=== PATIENT | male | born 1965 | race American Indian/Alaskan Native ===

== ENCOUNTER 2020-10-19 19:53 | Inpatient (IN) | payer OTHER, SELFPAY ==
[2020-10-19] MEDS ORDERED: ACETAMINOPHEN 325 MG TAB PO ONE (23:19)
[2020-10-19] MEDS ORDERED: SODIUM CHLORIDE 0.9% 1000 ML 1,000 ML IV ONE (23:27)
[2020-10-19] MEDS ORDERED: dexAMETHasone 20 MG/5 ML VIAL IV ONE (23:27)
--- NOTE | 2020-10-19 23:42 | Emergency Department Report ---
- General Chief Complaint: Fever Stated Complaint: FEVER/CHILLS X1WK PUI?: Yes Source: patient Mode of arrival: Ambulatory Limitations: No Limitations - History of Present Illness Initial Comments: The patient was evaluated in the emergency department for symptoms described in the history of present illness. He/she was evaluated in the context of the global COVID-19 pandemic, which necessitated consideration that the patient might be at risk for infection with the virus that causes COVID-19. Institutional protocols and algorithms that pertain to the evaluation of patients at risk for COVID-19 are in a state of rapid change based on information released by regulatory bodies including the CDC and federal and state organizations. These policies and algorithms were followed during the patient's care in the emergency department. Please note that these policies, procedures and recommendations changed on a rapid basis. 55-year-old -[place] male presents to the emergency room complaining of fever chills decreased appetite loss of taste and smell x1 week. Patient reports that he tested positive for Covid yesterday. Patient comes in with a temperature of 101.2 and a pulse ox of 91% on room air. 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 He does not take any medications on a daily basis and has no known drug allergies. Patient is unvaccinated. MD Complaint: fever, cough Onset/Timin -: week(s) Consistency: constant Improves With: nothing Worsens With: activity, deep breaths Associated Symptoms: fever, chills, cough, shortness of breath Treatments Prior to Arrival: none - Related Data Allergies Allergy/AdvReac Type Severity Reaction Status Date / Time No Known Allergies Allergy Unverified 10/19/20 23:16 ED Review of Systems ROS: Stated complaint: FEVER/CHILLS X1WK Other details as noted in HPI Comment: All other systems reviewed and negative Constitutional: chills, fever Respiratory: cough, SOB with exertion ED Past Medical Hx - Past Medical History Previous Medical History?: No - Surgical History Past Surgical History?: No - Social History Smoking Status: Never Smoker Substance Use Type: None ED Physical Exam - General Limitations: No Limitations General appearance: alert - Head Head exam: Present: atraumatic, normocephalic - Eye Eye exam: Present: normal appearance - ENT ENT exam: Present: mucous membranes moist, normal external ear exam - Neck Neck exam: Present: normal inspection, full ROM - Respiratory Respiratory exam: Present: normal lung sounds bilaterally. Absent: respiratory distress, wheezes, chest wall tenderness - Cardiovascular Cardiovascular Exam: Present: regular rate - GI/Abdominal GI/Abdominal exam: Present: soft. Absent: distended, tenderness, guarding - Extremities Exam Extremities exam: Present: normal inspection, full ROM - Back Exam Back exam: Present: normal inspection, full ROM - Neurological Exam Neurological exam: Present: alert, oriented X3, normal gait - Psychiatric Psychiatric exam: Present: normal affect, normal mood - Skin Skin exam: Present: warm, dry, intact, normal color. Absent: rash ED Course Vital Signs 10/19/20 23:06 Temperature 101.2 F H Pulse Rate 83 Respiratory 20 Rate Blood Pressure 138/105 O2 Sat by Pulse 91 Oximetry - Consultations Consultation #1: 10/20/20 01:[address] Maldonado ER attending regarding admission. Consultation #2: 10/20/20 01:[address] Vega regarding admission for Covid, pneumonia and hypoxia. Discussed labs and chest x-ray. He states admit patient to [facility] ED Medical Decision Making - Lab Data Result diagrams: 10/20/20 00:27 10/20/20 00:27 - Radiology Data Radiology results: report reviewed Study Comments [address] [address] XRay Report Signed Patient: JUANI CARDONA MR#: [id number] : 1965 Acct:[id number] Age/Sex: 55 / M ADM Date: 10/19/20 Loc: ED Attending Dr: Ordering Physician: ZULY VILLARREAL III, MD Date of Service: 10/19/20 Procedure(s): XR chest routine 2V Accession Number(s): [id number] cc: ZULY VILLARREAL III, MD Fluoro Time In Minutes: CHEST 2 VIEWS INDICATION / CLINICAL INFORMATION: cough and fever. COMPARISON: None available. FINDINGS: SUPPORT DEVICES: None. HEART / MEDIASTINUM: No significant abnormality. LUNGS / PLEURA: Patchy bilateral pulmonary opacities. No pneumothorax. ADDITIONAL FINDINGS: No significant additional findings. IMPRESSION: 1. Patchy bilateral pneumonia. Atypical/viral pneumonia such as Covid should be considered. Signer Name: Luis Carlos Jean MD Signed: 10/20/2020 12:14 AM Workstation Name: [id number] Transcribed By: DT Dictated By: Brannon Jena MD Electronically Authenticated By: Brannon Jean MD Signed Date/Time: 10/20/2013 DD/ TD/TT: - Medical Decision Making 55-year-old -[place] male presents to the emergency room complaining of fever chills decreased appetite loss of taste and smell x1 week. Patient reports that he tested positive for Covid yesterday. Patient comes in with a temperature of 101.2 and a pulse ox of 91% on room air. 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 He is from [place]. He does not take any medications on a daily basis and has no known drug allergies. Patient is unvaccinated. Covid protocol has been ordered. Patient is placed in room 36 on pulse ox cardiac monitoring chest x-ray has been ordered labs have been initiated. IV has been ordered normal saline dexamethasone. Patient has been given acetaminophen in triage. Discussed patient with patient will be admitted to med/surge. Critical Care Time: Yes (35) Critical care attestation.: If time is entered above; I have spent that time in minutes in the direct care of this critically ill patient, excluding procedure time. ED Disposition Clinical Impression: Pneumonia due to 2019 novel coronavirus, Hypoxia Disposition: OP ADMIT IP TO THIS HOSP Is pt being admited?: Yes Does the pt Need Aspirin: No Condition: Stable Instructions: Bacterial Pneumonia (ED)
--- NOTE | 2020-10-20 00:19 | XRay Report ---
CHEST 2 VIEWS INDICATION / CLINICAL INFORMATION: cough and fever. COMPARISON: None available. FINDINGS: SUPPORT DEVICES: None. HEART / MEDIASTINUM: No significant abnormality. LUNGS / PLEURA: Patchy bilateral pulmonary opacities. No pneumothorax. ADDITIONAL FINDINGS: No significant additional findings. IMPRESSION: 1. Patchy bilateral pneumonia. Atypical/viral pneumonia such as Covid should be considered. Signer Name: Luis Carlos Jean MD Signed: 10/20/2020 12:14 AM Workstation Name: [email or web address]
[2020-10-20 00:46] LABS: Basophils % (Auto) 0.6 % (0.0-1.8); Hematocrit 41.3 % (35.5-45.6); Hemoglobin 13.5 gm/dl (11.8-15.2); Lymphocytes # (Auto) 1.7 K/mm3 (1.2-5.4); Lymphocytes % (Auto) 21.9 % (13.4-35.0); Mean Corpuscular HGB Conc 33 % (32-34); Mean Corpuscular Volume 83 fl (84-94); Monocytes # (Auto) 0.6 K/mm3 (0.0-0.8); Monocytes % (Auto) 7.2 % (0.0-7.3); Platelet Count 194 K/mm3 (140-440); Red Blood Count 4.97 M/mm3 (3.65-5.03); Red Cell Distribution Width 12.9 % (13.2-15.2)
[2020-10-20 01:09] LABS: Albumin 3.6 g/dL (3.9-5); Calcium 8.2 mg/dL (8.4-10.2)
[2020-10-20] MEDS ORDERED: ACETAMINOPHEN 325 MG TAB PO PRN (02:36)
[2020-10-20] MEDS ORDERED: MORPHINE 4 MG/1 ML INJ IV PRN (02:36)
[2020-10-20] MEDS ORDERED: MAGNESIUM HYDROXIDE (MOM) ORAL LIQD UDC PO PRN (02:36)
[2020-10-20] MEDS ORDERED: ONDANSETRON 4 MG/2 ML INJ IV PRN (02:36)
[2020-10-20] MEDS ORDERED: MORPHINE 2 MG/1 ML INJ IV PRN (02:36)
[2020-10-20 02:41] LABS: C-Reactive Protein 9.6 mg/dL (0.00-1.30)
[2020-10-20] MEDS ORDERED: SODIUM CHLORIDE 0.9% 1000 ML 1,000 ML IV SCH ×2 (02:45)
--- NOTE | 2020-10-20 02:45 | History and Physical Report ---
History of Present Illness Date of examination: 10/20/20 Date of admission: 10/20/2020 Chief complaint: Shortness of breath History of present illness: 55-year-old -French male seen in the emergency room today complaining of fever and chills, decreased appetite and loss of taste and smell over the past 1 week. He states he was diagnosed with COVID-19 yesterday. 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 Upon arrival in the emergency room he had a fever of about 1 to 1.2 F and oxygen saturation of 91% on room air. Denies any chest pain, no headache or dizziness, no nausea vomiting, no diarrhea, no abdominal pain, no hematuria or dysuria. Work-up in the emergency room today, chest x-ray reveals patchy bilateral pneumonia. Patient admitted with COVID-19 pneumonia with hypoxia. Past History Past Medical History: No medical history Past Surgical History: No surgical history Social history: no significant social history Family history: no significant family history Medications and Allergies Allergies Allergy/AdvReac Type Severity Reaction Status Date / Time No Known Allergies Allergy Unverified 10/19/20 23:16 Active Meds: Active Medications Acetaminophen (Acetaminophen 325 Mg Tab) 650 mg PO Q4H PRN PRN Reason: Pain MILD(1-3)/Fever >100.5/ABDALLA Sodium Chloride (Nacl 0.9% 1000 Ml) 1,000 mls @ 75 mls/hr IV DIRECT RAHUL Ceftriaxone Sodium (Rocephin/Ns 2 Gm/100 Ml) 2 gm in 100 mls @ 200 mls/hr IV Q24H RAHUL; Protocol Azithromycin (Zithromax/Ns) 500 mg in 250 mls @ 250 mls/hr IV Q24H RAHUL; Protocol Sodium Chloride (Nacl 0.9% 1000 Ml) 1,000 mls @ 75 mls/hr IV DIRECT RAHUL Magnesium Hydroxide (Magnesium Hydroxide (Mom) Oral Liqd Udc) 30 ml PO Q4H PRN PRN Reason: Constipation Morphine Sulfate (Morphine 2 Mg/1 Ml Inj) 2 mg IV Q4H PRN PRN Reason: Pain, Moderate (4-6) Morphine Sulfate (Morphine 4 Mg/1 Ml Inj) 4 mg IV Q4H PRN PRN Reason: Pain , Severe (7-10) Ondansetron HCl (Ondansetron 4 Mg/2 Ml Inj) 4 mg IV Q8H PRN PRN Reason: Nausea And Vomiting Sodium Chloride (Sodium Chloride 0.9% 10 Ml Flush Syringe) 10 ml IV BID RAHUL Sodium Chloride (Sodium Chloride 0.9% 10 Ml Flush Syringe) 10 ml IV PRN PRN PRN Reason: LINE FLUSH Review of Systems Constitutional: fever, chills, poor appetite Ears, nose, mouth and throat: no nasal congestion, no sore throat Cardiovascular: no chest pain, no palpitations Respiratory: cough, shortness of breath Gastrointestinal: no nausea, no vomiting, no diarrhea Genitourinary Male: no dysuria, no hematuria, no flank pain Musculoskeletal: no neck pain, no low back pain Integumentary: no rash, no pruritis Neurological: no headaches, no confusion Psychiatric: no anxiety, no depression Endocrine: no polyphagia, no polyuria, no nocturia Exam - Constitutional Vitals: Temp Pulse Resp BP Pulse Ox 101.2 F H 83 20 138/105 91 10/19/20 23:06 10/19/20 23:06 10/19/20 23:06 10/19/20 23:06 10/19/20 23:06 General appearance: Present: no acute distress, well-nourished - EENT Eyes: Present: PERRL, EOM intact. Absent: scleral icterus ENT: hearing intact, clear oral mucosa, dentition normal - Neck Neck: Present: supple, normal ROM - Respiratory Respiratory effort: normal Respiratory: bilateral: diminished - Cardiovascular Rhythm: regular Heart Sounds: Present: S1 & S2. Absent: gallop, systolic murmur, diastolic murmur, rub, click - Extremities Extremities: no ischemia, pulses intact, pulses symmetrical, No edema, normal temperature, normal color, Full ROM Peripheral Pulses: within normal limits - Abdominal General gastrointestinal: Present: soft, non-tender, non-distended, normal bowel sounds. Absent: mass - Integumentary Integumentary: Present: clear, warm, dry. Absent: rash - Musculoskeletal Musculoskeletal: strength equal bilaterally - Psychiatric Psychiatric: appropriate mood/affect, intact judgment & insight, memory intact, cooperative - Neurologic Neurologic: CNII-XII intact, no focal deficits, moves all extremities Results - Labs CBC & Chem 7: 10/20/20 00:27 08/06/21 00:27 Labs: Abnormal lab results 08/06/21 08/06/21 08/06/21 Range/Units 00:27 00:27 00:27 MCV 83 L (84-94) fl MCH 27 L (28-32) pg RDW 12.9 L (13.2-15.2) % Seg Neutrophils % 70.3 H (40.0-70.0) % D-Dimer 418.21 H (0-234) ng/mlDDU Sodium 134 L (137-145) mmol/L Creatinine 1.5 H (0.8-1.3) mg/dL Calcium 8.2 L (8.4-10.2) mg/dL Ferritin (30.0-300.0) ng/mL AST 50 H (5-40) units/L ALT 62 H (7-56) units/L Albumin 3.6 L (3.9-5) g/dL 10/20/20 Range/Units 00:27 MCV (84-94) fl MCH (28-32) pg RDW (13.2-15.2) % Seg Neutrophils % (40.0-70.0) % D-Dimer (0-234) ng/mlDDU Sodium (137-145) mmol/L Creatinine (0.8-1.3) mg/dL Calcium (8.4-10.2) mg/dL Ferritin 893.9 H (30.0-300.0) ng/mL AST (5-40) units/L ALT (7-56) units/L Albumin (3.9-5) g/dL Assessment and Plan - Patient Problems (1) Pneumonia due to 2019 novel coronavirus Current Visit: Yes Status: Acute Plan to address problem: Patient placed on isolation precautions. He has been started on IV antibiotics and steroid. Consult placed to infectious disease for evaluation. (2) Hypoxia Current Visit: Yes Status: Acute Plan to address problem: Possibly secondary to the underlying pneumonia. We will place place patient on oxygen and keep O2 saturation greater or equal to 94%. (3) DVT prophylaxis Current Visit: Yes Status: Acute Plan to address problem: Patient placed on subcutaneous heparin. (4) Full code status Current Visit: Yes Status: Acute Plan to address problem: Patient is full code.
[2020-10-20] MEDS ORDERED: cefTRIAXone/NS 2 GM/100 ML 2 GM/100 ML BAG IV SCH ×2 (03:00→22:00)
[2020-10-20] MEDS ORDERED: AZITHROMYCIN/NS 500 MG/250 ML 500 MG/250 ML BAG IV SCH ×2 (03:00→22:00)
[2020-10-20] MEDS: ASCORBIC ACID 500 MG TAB PO SCH ×2 (11:28→23:45)
[2020-10-20] MEDS: ZINC SULFATE 220 MG CAP PO SCH ×2 (11:29→23:45)
[2020-10-20] MEDS: CHOLECALCIFEROL (VIT D3) 5,000 UNIT TAB PO SCH (11:29)
--- NOTE | 2020-10-20 14:11 | Consultation ---
History of Present Illness - Reason for Consult Consult date: 10/20/20 - History of Present Illness 55-year-old man past medical history none presented to hospital cleaning of fevers and chills with associated loss of taste and smell. This began approximately 1 week prior to admission. He was diagnosed with COVID-19 as an outpatient on the day prior to admission. 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 Otherwise no acute complaints. Febrile to 101.2 white count 7.7. WARNER but retain renal function. Normal procalcitonin. Elevated inflammatory markers. Currently on ceftriaxone azithromycin. Imaging personally reviewed: Chest x-ray: Patchy bilateral pneumonia Review of systems: Deferred to reduce to the risk of transmission of COVID-19 Past History Past Medical History: No medical history Past Surgical History: No surgical history Social history: no significant social history Family history: no significant family history Medications and Allergies Allergies Allergy/AdvReac Type Severity Reaction Status Date / Time No Known Allergies Allergy Unverified 10/19/20 23:16 Active Meds: Active Medications Acetaminophen (Acetaminophen 325 Mg Tab) 650 mg PO Q4H PRN PRN Reason: Pain MILD(1-3)/Fever >100.5/ABDALLA Ascorbic Acid (Ascorbic Acid 500 Mg Tab) 1,000 mg PO BID ARHUL Last Admin: 10/20/20 11:28 Dose: 1,000 mg Documented by: Cholecalciferol (Cholecalciferol (Vit D3) 5,000 Unit Tab) 5,000 unit PO DAILY RAHUL Last Admin: 10/20/20 11:29 Dose: 5,000 unit Documented by: Heparin Sodium (Porcine) (Heparin 5,000 Unit/1 Ml Vial) 5,000 unit SUB-Q Q8HR RAHUL Sodium Chloride (Nacl 0.9% 1000 Ml) 1,000 mls @ 75 mls/hr IV DIRECT RAHUL Azithromycin (Zithromax/Ns) 500 mg in 250 mls @ 250 mls/hr IV Q24H RAHUL; Protocol Stop: 10/23/20 22:59 Ceftriaxone Sodium (Rocephin/Ns 2 Gm/100 Ml) 2 gm in 100 mls @ 200 mls/hr IV Q24H RAHUL; Protocol Stop: 10/23/20 22:29 Magnesium Hydroxide (Magnesium Hydroxide (Mom) Oral Liqd Udc) 30 ml PO Q4H PRN PRN Reason: Constipation Morphine Sulfate (Morphine 2 Mg/1 Ml Inj) 2 mg IV Q4H PRN PRN Reason: Pain, Moderate (4-6) Morphine Sulfate (Morphine 4 Mg/1 Ml Inj) 4 mg IV Q4H PRN PRN Reason: Pain , Severe (7-10) Ondansetron HCl (Ondansetron 4 Mg/2 Ml Inj) 4 mg IV Q8H PRN PRN Reason: Nausea And Vomiting Sodium Chloride (Sodium Chloride 0.9% 10 Ml Flush Syringe) 10 ml IV BID [facility] Last Admin: 10/20/20 10:25 Dose: 10 ml Documented by: Sodium Chloride (Sodium Chloride 0.9% 10 Ml Flush Syringe) 10 ml IV PRN PRN PRN Reason: LINE FLUSH Zinc Sulfate (Zinc Sulfate 220 Mg Cap) 220 mg PO BID [facility] Last Admin: 10/20/20 11:29 Dose: 220 mg Documented by: Physical Examination - Physical Exam Narrative exam: Physical exam deferred to reduce risk of transmission of COVID-19. Please refer to primary team's note. - Constitutional Vitals: Vital Signs Temp Pulse Resp BP Pulse Ox 101.2 F H 75 31 H 148/96 96 10/19/20 23:06 10/20/20 14:06 10/20/20 14:06 10/20/20 14:06 10/20/20 14:06 Temperature -Last 24 Hours Temperature 101.2 F Results - Labs CBC & Chem 7: 10/20/20 00:27 10/20/20 00:27 Labs: Abnormal lab results 10/20/20 10/20/20 10/20/20 Range/Units 00:27 00:27 00:27 MCV 83 L (84-94) fl MCH 27 L (28-32) pg RDW 12.9 L (13.2-15.2) % Seg Neutrophils % 70.3 H (40.0-70.0) % D-Dimer 418.21 H (0-234) ng/mlDDU Sodium 134 L (137-145) mmol/L Creatinine 1.5 H (0.8-1.3) mg/dL Calcium 8.2 L (8.4-10.2) mg/dL Ferritin (30.0-300.0) ng/mL AST 50 H (5-40) units/L ALT 62 H (7-56) units/L Lactate Dehydrogenase (91-180) units/L C-Reactive Protein (0.00-1.30) mg/dL Albumin 3.6 L (3.9-5) g/dL 10/20/20 10/20/20 Range/Units 00:27 00:27 MCV (84-94) fl MCH (28-32) pg RDW (13.2-15.2) % Seg Neutrophils % (40.0-70.0) % D-Dimer (0-234) ng/mlDDU Sodium (137-145) mmol/L Creatinine (0.8-1.3) mg/dL Calcium (8.4-10.2) mg/dL Ferritin 893.9 H (30.0-300.0) ng/mL AST (5-40) units/L ALT (7-56) units/L Lactate Dehydrogenase 344 H (91-180) units/L C-Reactive Protein 9.60 H (0.00-1.30) mg/dL Albumin (3.9-5) g/dL Assessment and Plan Cultures: None A/P: 55-year-old man no past medical history admitted with COVID-19 #COVID-19 pneumonia: Patient presented with a week of symptoms, chest x-ray with diffuse bilateral infiltrates. Inflammatory markers elevated #WARNER: Renally dose medications Recs: -Dexamethasone 6 mg IV/PO daily for 10 days -If requiring supplemental oxygen recommend Remdesivir 200 mg IV q day x 1 followed by 100 mg IV q day x 4 days -If he decompensates to require high flow nasal cannula, recommend Actemra once given elevated CRP (if available) -Stopped antibiotics due to normal procalcitonin -Obtain q48-72h inflammatory markers - ferritin, Ddimer, CRP, LDH -Anticoagulation per hospital protocol -Proning as able Thank you for the consult, we will continue to follow. Francis Ribera MD [facility] ([facility] O: [phone] F: [phone]
[2020-10-20] MEDS: HEPARIN 5,000 UNIT/1 ML VIAL SUB-Q SCH ×2 (14:17→23:45)
--- NOTE | 2020-10-20 14:33 | Event Note ---
Date: 10/20/20 This is the second visit after midnight Patient seen and examined maintaining Covid protocol 55-year-old -[place] male seen in the emergency room with complaining of fever and chills, decreased appetite and loss of taste and smell over the past 1 week. He states he was diagnosed with COVID-19 yesterday. Upon arrival in the emergency room he had a fever of about 1 to 1.2 F and oxygen saturation of 91% on room air. chest x-ray reveals patchy bilateral pneumonia. Patient admitted with COVID-19 pneumonia with increased risk of hypoxemia Initiated on dexamethasone, ID consulted, follow inflammatory markers If remains hypoxic overnight should be able to discharge home tomorrow -It took me about 28 minutes to reevaluate and reasses this patient, discussed with RN/CM, review medical documents, lab results, imaging, medication list and placing order.
[2020-10-20] MEDS: DEXAMETHASONE 4 MG TAB PO SCH (15:11)
--- NOTE | 2020-10-21 05:05 | Consultation ---
History of Present Illness Consult date: 10/21/20 Requesting physician: ALYSA REECE Reason for consult: hypoxemia, other (COVID) History of present illness: 55-year-old man past medical history none presented to hospital cleaning of fevers and chills with associated loss of taste and smell. This began approximately 1 week prior to admission. He was diagnosed with COVID-19 as an outpatient on the day prior to admission. 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 Otherwise no acute complaints. Denies any chest pain, no headache or dizziness, no nausea vomiting, no diarrh ea, no abdominal pain, no hematuria or dysuria. Febrile to 101.2 white count 7.7. WARNER but retain renal function. Normal procalcitonin. Elevated inflammatory markers. Currently on ceftriaxone azit hromycin. Work-up in the emergency room today, chest x-ray reveals patchy bilateral pneumonia. Patient admitted with COVID-19 pneumonia with hypoxia. A pulmonary consult was placed. Patient was seen and examined. Vitals, labs, medications, Work-up in the emergency room today, chest x-ray reveals patchy bilateral pneumonia. Imaging personally reviewed: Chest x-ray: Patchy bilateral pneumonia Review of Systems Constitutional: fever, chills, poor appetite Ears, nose, mouth and throat: no nasal congestion, no sore throat Cardiovascular: no chest pain, no palpitations Respiratory: cough, shortness of breath Gastrointestinal: no nausea, no vomiting, no diarrhea Genitourinary Male: no dysuria, no hematuria, no flank pain Musculoskeletal: no neck pain, no low back pain Integumentary: no rash, no pruritis Neurological: no headaches, no confusion Psychiatric: no anxiety, no depression Endocrine: no polyphagia, no polyuria, no nocturia Past History Past Medical History: No medical history Past Surgical History: No surgical history Social history: no significant social history Family history: no significant family history Medications and Allergies Allergies Allergy/AdvReac Type Severity Reaction Status Date / Time No Known Allergies Allergy Unverified 10/19/20 23:16 Home Medications Medication Instructions Recorded Confirmed Last Taken Type Albuterol Mdi (or & Nicu Only) 2 puff IH QID PRN #8.5 gram 10/21/20 Unknown Rx [ProAir HFA Inhaler] Ascorbic Acid [Vitamin C] 1,000 mg PO BID #14 tablet 10/21/20 Unknown Rx Cholecalciferol (Vitamin D3) 5,000 unit PO DAILY #7 tablet 10/21/20 Unknown Rx [Vitamin D3] Zinc Sulfate 220 mg PO BID #14 capsule 10/21/20 Unknown Rx dexAMETHasone [Decadron] 6 mg PO Q24HR #7 tablet 10/21/20 Unknown Rx Famotidine [Pepcid] 10 mg PO BID #14 tablet 10/25/20 Unknown Rx Active Meds: Active Medications Acetaminophen (Acetaminophen 325 Mg Tab) 650 mg PO Q4H PRN PRN Reason: Pain MILD(1-3)/Fever >100.5/ABDALLA Ascorbic Acid (Ascorbic Acid 500 Mg Tab) 1,000 mg PO BID [facility] Last Admin: 10/20/20 23:45 Dose: 1,000 mg Documented by: Cholecalciferol (Cholecalciferol (Vit D3) 5,000 Unit Tab) 5,000 unit PO DAILY [facility] Last Admin: 10/20/20 11:29 Dose: 5,000 unit Documented by: Dexamethasone (Dexamethasone 4 Mg Tab) 6 mg PO Q24HR [facility] Last Admin: 10/20/20 15:11 Dose: 6 mg Documented by: Heparin Sodium (Porcine) (Heparin 5,000 Unit/1 Ml Vial) 5,000 unit SUB-Q Q8HR [facility] Last Admin: 10/20/20 23:45 Dose: 5,000 unit Documented by: Sodium Chloride (Nacl 0.9% 1000 Ml) 1,000 mls @ 75 mls/hr IV DIRECT [facility] Magnesium Hydroxide (Magnesium Hydroxide (Mom) Oral Liqd Udc) 30 ml PO Q4H PRN PRN Reason: Constipation Morphine Sulfate (Morphine 2 Mg/1 Ml Inj) 2 mg IV Q4H PRN PRN Reason: Pain, Moderate (4-6) Morphine Sulfate (Morphine 4 Mg/1 Ml Inj) 4 mg IV Q4H PRN PRN Reason: Pain , Severe (7-10) Ondansetron HCl (Ondansetron 4 Mg/2 Ml Inj) 4 mg IV Q8H PRN PRN Reason: Nausea And Vomiting Sodium Chloride (Sodium Chloride 0.9% 10 Ml Flush Syringe) 10 ml IV BID [facility] Last Admin: 10/20/20 23:46 Dose: 10 ml Documented by: Sodium Chloride (Sodium Chloride 0.9% 10 Ml Flush Syringe) 10 ml IV PRN PRN PRN Reason: LINE FLUSH Zinc Sulfate (Zinc Sulfate 220 Mg Cap) 220 mg PO BID [facility] Last Admin: 10/20/20 23:45 Dose: 220 mg Documented by: Physical Examination Vital signs: Vital Signs Temp Pulse Resp BP Pulse Ox 101.2 F H 83 20 138/105 91 10/19/20 23:06 10/19/20 23:06 10/19/20 23:06 10/19/20 23:06 10/19/20 23:06 General appearance: Present: no acute distress, well-nourished - EENT Eyes: Present: PERRL, EOM intact. Absent: scleral icterus ENT: hearing intact, clear oral mucosa, dentition normal - Neck Neck: Present: supple, normal ROM - Respiratory Respiratory effort: normal Respiratory: bilateral: diminished - Cardiovascular Rhythm: regular Heart Sounds: Present: S1 & S2. Absent: gallop, systolic murmur, diastolic murmur, rub, click - Extremities Extremities: no ischemia, pulses intact, pulses symmetrical, No edema, normal temperature, normal color, Full ROM Peripheral Pulses: within normal limits - Abdominal General gastrointestinal: Present: soft, non-tender, non-distended, normal bowel sounds. Absent: mass - Integumentary Integumentary: Present: clear, warm, dry. Absent: rash - Musculoskeletal Musculoskeletal: strength equal bilaterally - Psychiatric Psychiatric: appropriate mood/affect, intact judgment & insight, memory intact, cooperative - Neurologic Neurologic: CNII-XII intact, no focal deficits, moves all extremities Results - Laboratory Findings CBC and BMP: 10/21/20 05:06 10/24/20 05:48 PT/INR, D-dimer D-Dimer 418.21 ng/mlDDU (0-234) H 10/20/20 00:27 Abnormal lab findings: Abnormal Labs 10/19/20 10/20/20 10/20/20 07:50 00:27 00:27 MCV 83 L MCH 27 L RDW 12.9 L Seg Neutrophils % 70.3 H D-Dimer Sodium 134 L Creatinine 1.5 H Calcium 8.2 L Ferritin AST 50 H ALT 62 H Lactate Dehydrogenase C-Reactive Protein Albumin 3.6 L Coronavirus (PCR) Positive A 10/20/20 10/20/20 10/20/20 00:27 00:27 00:27 MCV MCH RDW Seg Neutrophils % D-Dimer 418.21 H Sodium Creatinine Calcium Ferritin 893.9 H AST ALT Lactate Dehydrogenase 344 H C-Reactive Protein 9.60 H Albumin Coronavirus (PCR) - Diagnostic Findings Chest x-ray: image reviewed Assessment and Plan A/P: 55-year-old man no past medical history admitted with COVID-19 -Acute hypoxic resp failure -COVID-19 pneumonia: Patient presented with a week of symptoms, chest x-ray with diffuse bilateral infiltrates. Inflammatory markers elevated -WARNER Recommendations -ABG now -CXR and ABG as clinically indicated -Titrate supplemental oxygen to keep O2 [id number]% -Dexamethasone 6 mg IV/PO daily for 10 days -Remdesivir to complete 5 days of therapy -Bronchodilators -Serum inflammatory markers per facility [id number] inflammatory markers - ferritin, Ddimer, CRP, LDH -VTE prophylaxis, adjust dosing based on d-dimer and facility protocol -Get IL6 and CRP levels, may need Tociluzimab -Avoid nephrotoxins, adjust all medications for GFR and CRP -Fluid conservative measures as tolerated by renal function and hemodynamics -Emppiric antibiotics for CAP to complete a 5 day course -Awake proning which was discussed with him and demonstrated -Home oxygen evaluation at the time of discharge planning -Continue airborne and contact isolation per facility protocol for COVID -Encourage to get vaccinated post discharge Thank you for the consult. Will follow
[2020-10-21] MEDS: HEPARIN 5,000 UNIT/1 ML VIAL SUB-Q SCH ×3 (06:33→21:37)
[2020-10-21 06:45] LABS: Basophils % (Auto) 0.1 % (0.0-1.8); Hematocrit 42.4 % (35.5-45.6); Hemoglobin 14.1 gm/dl (11.8-15.2); Lymphocytes # (Auto) 1.4 K/mm3 (1.2-5.4); Lymphocytes % (Auto) 9.4 % (13.4-35.0); Mean Corpuscular HGB Conc 33 % (32-34); Mean Corpuscular Volume 84 fl (84-94); Monocytes % (Auto) 7.2 % (0.0-7.3); Platelet Count 274 K/mm3 (140-440); Red Blood Count 5.07 M/mm3 (3.65-5.03); Red Cell Distribution Width 13.1 % (13.2-15.2)
[2020-10-21 06:51] LABS: INR 0.89 (0.87-1.13)
[2020-10-21 06:56] LABS: BUN/Creatinine Ratio 16; Blood Urea Nitrogen 21 mg/dL (9-20); Calcium 8.3 mg/dL (8.4-10.2); Hemolysis Index 0
[2020-10-21] MEDS: ASCORBIC ACID 500 MG TAB PO SCH ×2 (10:43→21:37)
[2020-10-21] MEDS: CHOLECALCIFEROL (VIT D3) 5,000 UNIT TAB PO SCH (10:43)
[2020-10-21] MEDS: ZINC SULFATE 220 MG CAP PO SCH ×2 (10:44→21:37)
[2020-10-21] MEDS: DEXAMETHASONE 4 MG TAB PO SCH (10:44)
--- NOTE | 2020-10-21 14:05 | Discharge Summary ---
Providers - Providers Date of Admission: 10/20/20 02:37 Date of discharge: 10/21/20 Attending physician: ALYSA REECE 10/20/20 07:08 Consult to Physician [CONS] Routine Comment: Consulting Provider: JOEL ALVARADO Physician Instructions: Reason For Exam: COVID-19 pneumonia 10/20/20 07:14 Consult to Physician [CONS] Routine Comment: Consulting Provider: JOSE BRAGA Physician Instructions: Reason For Exam: COVID-19 pneumonia, hypoxia Primary care physician: FRONT END JAVA DEVELOPER Hospitalization Condition: Stable Hospital course: 55-year-old -[place] Citizen male seen in the emergency room with complaining of fever and chills, decreased appetite and loss of taste and smell over the past 1 week. He states he was diagnosed with COVID-19 yesterday. Upon arrival in the emergency room he had a fever of about 1 to 1.2 F and oxygen saturation of 91% on room air. chest x-ray reveals patchy bilateral pneumonia. Patient admitted with COVID-19 pneumonia with increased risk of hypoxemia Initiated on dexamethasone, ID consulted, follow inflammatory markers -Patient was tested positive for COVID. -Antibiotic was not required as procalcitonin level was normal - Placed on Droplet/contact isolation, continuous SPO2 monitoring, supplemental oxygen as needed, pulmonary hygiene, prone to sleep, Vitamin C, vitamin D, zinc -Patient was given anticoagulation per protocol, -Infectious disease was consulted. No remdesivir required as patient was resting on room air without being hypoxic. -Assessed for Home O2 requirement. -Patient's symptoms improved with current Mx and was assessed for home O2 requirement. - Patient was then discharged home in stable condition with outpt followup. Disposition: DC- TO HOME OR SELFCARE Final Discharge Diagnosis (Prints w/discharge instructions): --COVID-19 pneumonia. --hypoxemia resolved Time spent for discharge: 34 minutes Core Measure Documentation - Palliative Care Palliative Care/ Comfort Measures: Not Applicable - Core Measures Any of the following diagnoses?: none Exam - Physical Exam Narrative exam: Limited physical exam due to COVID-19 pandemic to minimize transmission of the disease and to preserve PPE. Vital reviewed and stable. GENERAL: well-developed well-nourished -[place] Citizen male lying on bed a ppeared to be in no discomfort. HEENT: Normocephalic. Atraumatic. NECK: Supple. CHEST/LUNGS: breathing nonlabored. HEART/CARDIOVASCULAR: Heart rate stable on telemetry ABDOMEN: Visibly not distended SKIN: There is no rash NEURO: No focal motor deficit. Follows command. MUSCULOSKELETAL: No joint effusion EXTRIMITY: No swelling, no cyanosis or clubbing. PSYCH: Cooperative. - Constitutional Vitals: Temp Pulse Resp BP Pulse Ox 99.4 F 81 16 112/72 92 10/21/20 04:12 10/21/20 04:12 10/21/20 04:12 10/21/20 04:12 10/21/20 12:07 Plan Activity: advance as tolerated Weight Bearing Status: Weight Bear as Tolerated Diet: low fat, low salt Additional Instructions: Upon discharge patient should self-quarantine at home up to 2 weeks from the onset of symptoms. Patients should return to hospital regardless if they have worsening fevers or respiratory status. Follow up with: PRIMARY CAREMD [Primary Care Provider] - 3-5 Days VÍCTOR MARCANO MD [Staff Physician] - 7 Days Prescriptions: dexAMETHasone [Decadron] 6 mg PO Q24HR #7 tablet Albuterol Mdi (or & Nicu Only) [ProAir HFA Inhaler] 2 puff IH QID PRN #8.5 gram PRN Reason: Shortness Of Breath Ascorbic Acid [Vitamin C] 1,000 mg PO BID #14 tablet Cholecalciferol (Vitamin D3) [Vitamin D3] 5,000 unit PO DAILY #7 tablet Zinc Sulfate 220 mg PO BID #14 capsule
--- NOTE | 2020-10-21 16:19 | Progress Note ---
Assessment and Plan -- Pneumonia due to 2019 novel coronavirus Patient placed on isolation precautions. He has been started on IV antibiotics and steroid. Consult placed to infectious disease for evaluation. --Acute hypoxic respiratory failure O2 sat drops to 87% on ambulation Possibly secondary to the underlying pneumonia. We will place place patient on oxygen and keep O2 saturation greater or equal to 94%. -- DVT prophylaxis Patient placed on subcutaneous heparin. --Full code status Daily clinical course: 10/21/20: Patient is not vaccinated against Covid. O2 sat dropped to 87% on ambulation. We will continue dexamethasone and will initiate remdesivir. Continue to follow inflammatory markers. Schedule lab and as needed Subjective Date of service: 10/21/20 Interval history: Patient seen and examined. Medical records and medication list reviewed. No acute event overnight noted by the RN. Patient becoming hypoxic on ambulation. Patient is tolerating diet. Discussed plan of care at bedside with patient. Objective - Exam Narrative Exam: Limited physical exam due to COVID-19 pandemic to minimize transmission of the disease and to preserve PPE. Vital reviewed and stable. GENERAL: well-developed well-nourished -[place] male lying on bed appeared to be in no discomfort. HEENT: Normocephalic. Atraumatic. NECK: Supple. CHEST/LUNGS: breathing nonlabored. HEART/CARDIOVASCULAR: Heart rate stable on telemetry ABDOMEN: Visibly not distended SKIN: There is no rash NEURO: No focal motor deficit. Follows command. MUSCULOSKELETAL: No joint effusion EXTRIMITY: No swelling, no cyanosis or clubbing. PSYCH: Cooperative. - Constitutional Vitals: Vital Signs - 12hr 10/21/20 12:07 O2 Sat by Pulse 92 Oximetry - Labs CBC & Chem 7: 10/21/20 05:06 10/22/20 06:56 Labs: Abnormal lab results 10/21/20 10/21/20 Range/Units 05:06 05:06 WBC 14.5 H (4.5-11.0) K/mm3 RBC 5.07 H (3.65-5.03) M/mm3 RDW 13.1 L (13.2-15.2) % Lymph % (Auto) 9.4 L (13.4-35.0) % [place] # (Auto) 1.0 H (0.0-0.8) K/mm3 Seg Neutrophils % 83.3 H (40.0-70.0) % Seg Neutrophils # 12.1 H (1.8-7.7) K/mm3 BUN 21 H (9-20) mg/dL Glucose 125 H (75-100) mg/dL Calcium 8.3 L (8.4-10.2) mg/dL
[2020-10-21 17:05] LABS: Alanine Aminotransferase 46 units/L (7-56); Albumin 3.4 g/dL (3.9-5); BUN/Creatinine Ratio 19; Blood Urea Nitrogen 21 mg/dL (9-20); Calcium 8.9 mg/dL (8.4-10.2); Hemolysis Index 5
[2020-10-21] MEDS: SODIUM CHLORIDE 0.9% 50 ML IVPB IV SCH (17:11)
[2020-10-21] MEDS ORDERED: REMDESIVIR 200 MG in SODIUM CHLORIDE 0.9% 250ML 250 ML IV ONE (17:30)
[2020-10-22] MEDS: HEPARIN 5,000 UNIT/1 ML VIAL SUB-Q SCH ×3 (05:44→22:36)
[2020-10-22 09:01] LABS: Alanine Aminotransferase 54 units/L (7-56); Albumin 3.4 g/dL (3.9-5); BUN/Creatinine Ratio 22; Blood Urea Nitrogen 22 mg/dL (9-20); Calcium 8.9 mg/dL (8.4-10.2); Hemolysis Index 2
[2020-10-22] MEDS: DEXAMETHASONE 4 MG TAB PO SCH (09:10)
[2020-10-22] MEDS: CHOLECALCIFEROL (VIT D3) 5,000 UNIT TAB PO SCH (09:10)
[2020-10-22] MEDS: ASCORBIC ACID 500 MG TAB PO SCH ×2 (09:10→22:36)
--- NOTE | 2020-10-22 12:50 | Progress Note ---
Assessment and Plan -- Pneumonia due to 2019 novel coronavirus Patient placed on isolation precautions. He has been started on IV antibiotics and steroid. Consult placed to infectious disease for evaluation. --Acute hypoxic respiratory failure O2 sat drops to 87% on ambulation Possibly secondary to the underlying pneumonia. We will place place patient on oxygen and keep O2 saturation greater or equal to 94%. -- DVT prophylaxis Patient placed on subcutaneous heparin. --Full code status Daily clinical course: 10/21/20: Patient is not vaccinated against Covid. O2 sat dropped to 87% on ambulation. We will continue dexamethasone and will initiate remdesivir. Continue to follow inflammatory markers. Schedule lab and as needed 10/22/20: Continue dexamethasone and remdesivir. Pending ID consult, follow inflammatory markers, assess for home O2 requirement before discharge. Subjective Date of service: 10/22/20 Interval history: Patient seen and examined. Medical records and medication list reviewed. No acute event overnight noted by the RN. Patient on n/c o2. Patient is tolerating diet. Discussed plan of care at bedside with patient. Objective - Exam Narrative Exam: Limited physical exam due to COVID-19 pandemic to minimize transmission of the disease and to preserve PPE. Vital reviewed and stable. GENERAL: well-developed well-nourished -[place] male lying on bed appeared to be in no discomfort. HEENT: Normocephalic. Atraumatic. NECK: Supple. CHEST/LUNGS: breathing nonlabored. HEART/CARDIOVASCULAR: Heart rate stable on telemetry ABDOMEN: Visibly not distended SKIN: There is no rash NEURO: No focal motor deficit. Follows command. MUSCULOSKELETAL: No joint effusion EXTRIMITY: No swelling, no cyanosis or clubbing. PSYCH: Cooperative. - Constitutional Vitals: Vital Signs - 12hr 10/22/20 04:31 Temperature 98.4 F Pulse Rate 75 Respiratory 18 Rate Blood Pressure 139/98 O2 Sat by Pulse 94 Oximetry - Labs CBC & Chem 7: 10/21/20 05:06 10/23/20 07:10 Labs: Abnormal lab results 10/21/20 10/22/20 Range/Units 16:29 06:56 Sodium 135 L (137-145) mmol/L BUN 21 H 22 H (9-20) mg/dL Glucose 136 H (75-100) mg/dL AST 47 H 55 H (5-40) units/L Albumin 3.4 L 3.4 L (3.9-5) g/dL
[2020-10-22] MEDS: ZINC SULFATE 220 MG CAP PO SCH ×2 (13:06→22:37)
[2020-10-22 16:12] LABS: C-Reactive Protein 8.1 mg/dL (0.00-1.30)
--- NOTE | 2020-10-22 20:56 | Progress Note ---
Assessment and Plan A/P: 55-year-old man no past medical history admitted with COVID-19 -Acute hypoxic resp failure -COVID-19 pneumonia: Patient presented with a week of symptoms, chest x-ray with diffuse bilateral infiltrates. Inflammatory markers elevated -WARNER: resolved Continue all care as documented below. -CXR and ABG as clinically indicated -Continue to titrate supplemental oxygen to keep SpO2 89-92% -Continue with Dexamethasone 6 mg IV/PO daily for 10 days -Continue with Remdesivir to complete 5 days of therapy -Continue with Bronchodilators -Continue to monitor serum inflammatory markers per facility [id number] inflammatory markers - ferritin, D dimer, CRP, LDH -VTE prophylaxis, adjust dosing based on d-dimer and facility protocol -Continue to avoid nephrotoxins, adjust all medications for GFR and CRP -Awake proning as tolerated -Home oxygen evaluation at the time of discharge planning -Continue airborne and contact isolation per facility protocol for COVID -Encourage to get vaccinated post discharge Subjective Date of service: 10/22/20 Interval history: Patient seen for acute hypoxic resp failure; COVID pneumonia: WARNER Seen and examined. Vitals, labs, medications, chart reviewed. No adverse overnight events, denies any fevers or chills. No diarrhea, no abdominal pain, no nausea or vomiting. No chest pain, no cough. He is ambulating in his room. Beginning to feel better. He remains on supplemental oxygen- NC at 2-3 liters Discussed with nursing Objective - Exam Narrative Exam: General appearance: Present: no acute distress, well-nourished - EENT Eyes: Present: PERRL, EOM intact. Absent: scleral icterus ENT: hearing intact, clear oral mucosa, dentition normal - Neck Neck: Present: supple, normal ROM - Respiratory Respiratory effort: normal Respiratory: bilateral: diminished - Cardiovascular Rhythm: regular Heart Sounds: Present: S1 & S2. Absent: gallop, systolic murmur, diastolic murmur, rub, click - Extremities Extremities: no ischemia, pulses intact, pulses symmetrical, No edema, normal temperature, normal color, Full ROM Peripheral Pulses: within normal limits - Abdominal General gastrointestinal: Present: soft, non-tender, non-distended, normal bowel sounds. Absent: mass - Integumentary Integumentary: Present: clear, warm, dry. Absent: rash - Musculoskeletal Musculoskeletal: strength equal bilaterally - Psychiatric Psychiatric: appropriate mood/affect, intact judgment & insight, memory intact, cooperative - Neurologic Neurologic: CNII-XII intact, no focal deficits, moves all extremities Vital Signs - 12hr 10/22/20 10/22/20 14:53 20:14 Temperature 98.5 F Pulse Rate 72 Respiratory 18 Rate Blood Pressure 150/96 O2 Sat by Pulse 95 92 Oximetry CBC and BMP: 10/21/20 05:06 10/24/20 05:48 ABG, PT/INR, D-dimer: PT/INR, D-dimer PT 12.6 Sec. (12.2-14.9) 10/21/20 05:06 INR 0.89 (0.87-1.13) 10/21/20 05:06 D-Dimer 427.77 ng/mlDDU (0-234) H 10/22/20 14:19 Abnormal lab findings: Abnormal Labs 10/19/20 10/20/20 10/20/20 07:50 00:27 00:27 WBC RBC MCV 83 L MCH 27 L RDW 12.9 L Lymph % (Auto) [place] # (Auto) Seg Neutrophils % 70.3 H Seg Neutrophils # D-Dimer Sodium 134 L BUN Creatinine 1.5 H Glucose Calcium 8.2 L Ferritin AST 50 H ALT 62 H Lactate Dehydrogenase C-Reactive Protein Albumin 3.6 L Coronavirus (PCR) Positive A 10/20/20 10/20/20 10/20/20 00:27 00:27 00:27 WBC RBC MCV MCH RDW Lymph % (Auto) [place] # (Auto) Seg Neutrophils % Seg Neutrophils # D-Dimer 418.21 H Sodium BUN Creatinine Glucose Calcium Ferritin 893.9 H AST ALT Lactate Dehydrogenase 344 H C-Reactive Protein 9.60 H Albumin Coronavirus (PCR) 10/21/20 10/21/20 10/21/20 05:06 05:06 16:29 WBC 14.5 H RBC 5.07 H MCV MCH RDW 13.1 L Lymph % (Auto) 9.4 L [place] # (Auto) 1.0 H Seg Neutrophils % 83.3 H Seg Neutrophils # 12.1 H D-Dimer Sodium 135 L BUN 21 H 21 H Creatinine Glucose 125 H 136 H Calcium 8.3 L Ferritin AST 47 H ALT Lactate Dehydrogenase C-Reactive Protein Albumin 3.4 L Coronavirus (PCR) 10/22/20 10/22/2010/22/21 06:56 14:19 14:19 WBC RBC MCV MCH RDW Lymph % (Auto) [place] # (Auto) Seg Neutrophils % Seg Neutrophils # D-Dimer 427.77 H Sodium BUN 22 H Creatinine Glucose Calcium Ferritin 1235.0 H AST 55 H ALT Lactate Dehydrogenase C-Reactive Protein Albumin 3.4 L Coronavirus (PCR) 10/22/20 14:19 WBC RBC MCV MCH RDW Lymph % (Auto) [place] # (Auto) Seg Neutrophils % Seg Neutrophils # D-Dimer Sodium BUN Creatinine Glucose Calcium Ferritin AST ALT Lactate Dehydrogenase 426 H C-Reactive Protein 8.10 H Albumin Coronavirus (PCR)
[2020-10-22] MEDS: REMDESIVIR 100 MG in SODIUM CHLORIDE 0.9% 250ML 250 ML IV SCH (22:35)
[2020-10-22] MEDS: SODIUM CHLORIDE 0.9% 50 ML IVPB IV SCH (22:36)
[2020-10-23] MEDS: HEPARIN 5,000 UNIT/1 ML VIAL SUB-Q SCH ×3 (05:17→22:28)
[2020-10-23 08:54] LABS: Alanine Aminotransferase 117 units/L (7-56); Albumin 3.5 g/dL (3.9-5); BUN/Creatinine Ratio 26; Blood Urea Nitrogen 26 mg/dL (9-20); Calcium 8.6 mg/dL (8.4-10.2); Hemolysis Index 3
[2020-10-23] MEDS: DEXAMETHASONE 4 MG TAB PO SCH (09:14)
[2020-10-23] MEDS: ASCORBIC ACID 500 MG TAB PO SCH ×2 (09:14→22:28)
[2020-10-23] MEDS: CHOLECALCIFEROL (VIT D3) 5,000 UNIT TAB PO SCH (09:14)
[2020-10-23] MEDS: ZINC SULFATE 220 MG CAP PO SCH ×2 (09:14→23:40)
--- NOTE | 2020-10-23 11:25 | Progress Note ---
Assessment and Plan Cultures: None A/P: 55-year-old man no past medical history admitted with COVID-19 #COVID-19 pneumonia: Patient presented with a week of symptoms, chest x-ray with diffuse bilateral infiltrates. Inflammatory markers elevated #Acute hypoxic resp failure: on NC. Secondary to COVID #WARNER: Renally dose medications Recs: -Dexamethasone 6 mg IV/PO daily for 10 days -Remdesivir to compelte 5 days -If he decompensates to require high flow nasal cannula, recommend Actemra once given elevated CRP (if available) -Obtain q48-72h inflammatory markers - ferritin, Ddimer, CRP, LDH -Anticoagulation per hospital protocol -Proning as able 6MWT prior to DC. No need to complete entire course of remdesivir if improved. Thank you for the consult, we will continue to follow. Francis Ribera MD [facility] ([facility]) O: [phone] F: [phone] Subjective Date of service: 10/23/20 Interval history: Afebrile, remains on NC. No other acute change. Objective - Exam Narrative Exam: Physical exam deferred to reduce risk of transmission of COVID-19. Please refer to primary team's note. - Constitutional Vitals: Vital Signs Temp Pulse Resp BP Pulse Ox 98.6 F 77 16 143/99 94 10/23/20 05:08 10/23/20 05:08 10/23/20 05:08 10/23/20 05:08 10/23/20 05:08 Temperature -Last 24 Hours Temperature 98.6 F Temperature 98.5 F - Labs CBC & Chem 7: 10/21/20 05:06 10/23/20 07:10 Labs: Abnormal lab results 10/22/20 10/22/20 10/22/20 Range/Units 14:19 14:19 14:19 D-Dimer 427.77 H (0-234) ng/mlDDU BUN (9-20) mg/dL Glucose (75-100) mg/dL Ferritin 1235.0 H (30.0-300.0) ng/mL AST (5-40) units/L ALT (7-56) units/L Lactate Dehydrogenase 426 H (91-180) units/L C-Reactive Protein 8.10 H (0.00-1.30) mg/dL Total Protein (6.3-8.2) g/dL Albumin (3.9-5) g/dL 10/23/20 Range/Units 07:10 D-Dimer (0-234) ng/mlDDU BUN 26 H (9-20) mg/dL Glucose 102 H (75-100) mg/dL Ferritin (30.0-300.0) ng/mL AST 81 H (5-40) units/L ALT 117 H (7-56) units/L Lactate Dehydrogenase (91-180) units/L C-Reactive Protein (0.00-1.30) mg/dL Total Protein 6.1 L (6.3-8.2) g/dL Albumin 3.5 L (3.9-5) g/dL
--- NOTE | 2020-10-23 14:10 | Progress Note ---
Assessment and Plan 55-year-old -[place] male seen in the emergency room complaining of fever and chills, decreased appetite and loss of taste and smell over the past 1 week. He states he was diagnosed with COVID-19 the day prior. 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 Upon arrival in the emergency room he had a fever of about 101.2 F and oxygen saturation of 91% on room air. Denies any chest pain, no headache or dizziness, no nausea vomiting, no diarrhea, no abdominal pain, no hematuria or dysuria. Work-up in the emergency room: chest x-ray reveals patchy bilateral pneumonia. Patient admitted with COVID-19 pneumonia with hypoxia. Today, patient is in deep sleep, on 2L O2, O2 sat of 93%. Unable to assess ROS due to deep sleep. He is afebrile, blood pressue 136/82, heart rate 68. Leukocytosis present. D-dimer is 427.77, LDH 426, CRP 8.1, Ferritin 1235. Chest X-ray (10/19/20): Patchy bilateral pneumonia. Atypical/viral pneumonia such as Covid should be considered. Current medications are Dexamethasone, Pepcid, S/Q Heparin, Remdesivir, and Zinc. I spent critical care time of 35 minutes on this patient, reviewing the chart, examine the patient, review the xrays, lab results, talking to the nursing staff and respiratory therapy and work out plan of treatment in this critically Covid 19 patient. - Patient Problems (1) Hypoxia Current Visit: Yes Status: Acute Plan to address problem: 2 litres O2. (2) Coronavirus infection Current Visit: Yes Status: Acute Plan to address problem: Patient is on REMDESIVIR,Dexamethasone, S/C Heparin, Famotidine (3) Pneumonia due to 2019 novel coronavirus Current Visit: Yes Status: Acute Plan to address problem: Antibiotic coverage as per infectious diseases. Subjective Date of service: 10/23/20 Interval history: 55-year-old -[place] male seen in the emergency room complaining of fever and chills, decreased appetite and loss of taste and smell over the past 1 week. He states he was diagnosed with COVID-19 the day prior. 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 Upon arrival in the emergency room he had a fever of about 101.2 F and oxygen saturation of 91% on room air. Denies any chest pain, no headache or dizziness, no nausea vomiting, no diarrhea, no abdominal pain, no hematuria or dysuria. Work-up in the emergency room: chest x-ray reveals patchy bilateral pneumonia. Patient admitted with COVID-19 pneumonia with hypoxia. Patient is in deep sleep, on 2L O2, O2 sat of 93%. Unable to assess ROS due to deep sleep. He is afebrile, blood pressue 136/82, heart rate 68. Leukocytosis present. D-dimer is 427.77, LDH 426, CRP 8.1, Ferritin 1235. Chest X-ray (10/19/20): Patchy bilateral pneumonia. Atypical/viral pneumonia such as Covid should be considered. Current medications are Dexamethasone, Pepcid, S/Q Heparin, Remdesivir, and Zinc. Objective Vital Signs - 12hr 10/23/20 05:08 Temperature 98.6 F Pulse Rate 77 Respiratory 16 Rate Blood Pressure 143/99 O2 Sat by Pulse 94 Oximetry Constitutional: no acute distress, asleep Eyes: non-icteric Neck: supple Ascultation: Bilateral: rhonchi Cardiovascular: regular rate and rhythm Gastrointestinal: normoactive bowel sounds Integumentary: normal Extremities: no cyanosis, no edema Neurologic: pupils equal and round, other (Unable to assess, as patient is in deep sleep.) Psychiatric: other (Unable to assess, as patient is in deep sleep.) CBC and BMP: 10/21/20 05:06 10/24/20 05:48 ABG, PT/INR, D-dimer: PT/INR, D-dimer PT 12.6 Sec. (12.2-14.9) 10/21/20 05:06 INR 0.89 (0.87-1.13) 10/21/20 05:06 D-Dimer 427.77 ng/mlDDU (0-234) H 10/22/20 14:19 Abnormal lab findings: Abnormal Labs 10/19/20 10/20/20 10/20/20 07:50 00:27 00:27 WBC RBC MCV 83 L MCH 27 L RDW 12.9 L Lymph % (Auto) [place] # (Auto) Seg Neutrophils % 70.3 H Seg Neutrophils # D-Dimer Sodium 134 L BUN Creatinine 1.5 H Glucose Calcium 8.2 L Ferritin AST 50 H ALT 62 H Lactate Dehydrogenase C-Reactive Protein Total Protein Albumin 3.6 L Coronavirus (PCR) Positive A 10/20/20 10/20/20 10/20/20 00:27 00:27 00:27 WBC RBC MCV MCH RDW Lymph % (Auto) [place] # (Auto) Seg Neutrophils % Seg Neutrophils # D-Dimer 418.21 H Sodium BUN Creatinine Glucose Calcium Ferritin 893.9 H AST ALT Lactate Dehydrogenase 344 H C-Reactive Protein 9.60 H Total Protein Albumin Coronavirus (PCR) 10/21/20 10/21/20 10/21/20 05:06 05:06 16:29 WBC 14.5 H RBC 5.07 H MCV MCH RDW 13.1 L Lymph % (Auto) 9.4 L [place] # (Auto) 1.0 H Seg Neutrophils % 83.3 H Seg Neutrophils # 12.1 H D-Dimer Sodium 135 L BUN 21 H 21 H Creatinine Glucose 125 H 136 H Calcium 8.3 L Ferritin AST 47 H ALT Lactate Dehydrogenase C-Reactive Protein Total Protein Albumin 3.4 L Coronavirus (PCR) 10/22/20 10/22/20 10/22/20 06:56 14:19 14:19 WBC RBC MCV MCH RDW Lymph % (Auto) [place] # (Auto) Seg Neutrophils % Seg Neutrophils # D-Dimer 427.77 H Sodium BUN 22 H Creatinine Glucose Calcium Ferritin 1235.0 H AST 55 H ALT Lactate Dehydrogenase C-Reactive Protein Total Protein Albumin 3.4 L Coronavirus (PCR) 10/22/20 10/23/20 14:19 07:10 WBC RBC MCV MCH RDW Lymph % (Auto) [place] # (Auto) Seg Neutrophils % Seg Neutrophils # D-Dimer Sodium BUN 26 H Creatinine Glucose 102 H Calcium Ferritin AST 81 H ALT 117 H Lactate Dehydrogenase 426 H C-Reactive Protein 8.10 H Total Protein 6.1 L Albumin 3.5 L Coronavirus (PCR) Chest x-ray: report reviewed, image reviewed Additional Studies: CHEST 2 VIEWS 10/19/20 INDICATION / CLINICAL INFORMATION: cough and fever. COMPARISON: None available. FINDINGS: SUPPORT DEVICES: None. HEART / MEDIASTINUM: No significant abnormality. LUNGS / PLEURA: Patchy bilateral pulmonary opacities. No pneumothorax. ADDITIONAL FINDINGS: No significant additional findings. IMPRESSION: 1. Patchy bilateral pneumonia. Atypical/viral pneumonia such as Covid should be considered.
--- NOTE | 2020-10-23 14:28 | Electrocardiograph Report ---
[facility] Test Date: 2020-10-20 Test Time: 21:08:58 Pat Name: JUANI CARDONA Department: Room: A3 1 Gender: M Rn Cardiology: TORRES : 1965 Requested By: FIFI MELARA Order Number: [id number] Reading MD: Rachel Russell Measurements Intervals [place] Rate: 84 P: 40 NE: 145 QRS: -58 QRSD: 94 T: -6 QT: 361 QTc: 427 Interpretive Statements Sinus rhythm Left axis deviation Nonspecific T wave abnormality No previous ECG available for comparison Electronically Signed On 10-23-2020 14:28:00 EDT by Rachel Russell
--- NOTE | 2020-10-23 16:08 | Progress Note ---
Assessment and Plan -- Pneumonia due to 2019 novel coronavirus Patient placed on isolation precautions. He has been started on IV antibiotics and steroid. Consult placed to infectious disease for evaluation. --Acute hypoxic respiratory failure O2 sat drops to 87% on ambulation Possibly secondary to the underlying pneumonia. We will place place patient on oxygen and keep O2 saturation greater or equal to 94%. -- DVT prophylaxis Patient placed on subcutaneous heparin. --Full code status Daily clinical course: 10/21/20: Patient is not vaccinated against Covid. O2 sat dropped to 87% on ambulation. We will continue dexamethasone and will initiate remdesivir. Continue to follow inflammatory markers. Schedule lab and as needed 10/22/20: Continue dexamethasone and remdesivir. Pending ID consult, follow inflammatory markers, assess for home O2 requirement before discharge. Subjective Date of service: 10/23/20 Objective - Constitutional Vitals: Vital Signs - 12hr 10/23/20 05:08 Temperature 98.6 F Pulse Rate 77 Respiratory 16 Rate Blood Pressure 143/99 O2 Sat by Pulse 94 Oximetry - Labs CBC & Chem 7: 10/21/20 05:06 10/23/20 07:10 Labs: Abnormal lab results 10/22/20 10/22/20 10/23/20 Range/Units 14:19 14:19 07:10 BUN 26 H (9-20) mg/dL Glucose 102 H (75-100) mg/dL Ferritin 1235.0 H (30.0-300.0) ng/mL AST 81 H (5-40) units/L ALT 117 H (7-56) units/L Lactate Dehydrogenase 426 H (91-180) units/L C-Reactive Protein 8.10 H (0.00-1.30) mg/dL Total Protein 6.1 L (6.3-8.2) g/dL Albumin 3.5 L (3.9-5) g/dL
--- NOTE | 2020-10-23 18:18 | Progress Note ---
Assessment and Plan -- Pneumonia due to 2019 novel coronavirus Patient placed on isolation precautions. He has been started on IV antibiotics and steroid. Consult placed to infectious disease for evaluation. --Acute hypoxic respiratory failure O2 sat drops to 87% on ambulation Possibly secondary to the underlying pneumonia. We will place place patient on oxygen and keep O2 saturation greater or equal to 94%. -- DVT prophylaxis Patient placed on subcutaneous heparin. --Full code status Daily clinical course: 10/21/20: Patient is not vaccinated against Covid. O2 sat dropped to 87% on ambulation. We will continue dexamethasone and will initiate remdesivir. Continue to follow inflammatory markers. Schedule lab and as needed 10/22/20: Continue dexamethasone and remdesivir. Pending ID consult, follow inflammatory markers, assess for home O2 requirement before discharge. 10/23/20;Continue dexamethasone and remdesivir. follow inflammatory markers, assess for home O2 requirement before discharge. Subjective Date of service: 10/23/20 Interval history: Patient seen and examined. Medical records and medication list reviewed. No acute event overnight noted by the RN. Patient on n/c o2. Patient is tolerating diet. Discussed plan of care at bedside with patient. Objective - Exam Narrative Exam: Limited physical exam due to COVID-19 pandemic to minimize transmission of the disease and to preserve PPE. Vital reviewed and stable. GENERAL: well-developed well-nourished -[place] male lying on bed appeared to be in no discomfort. HEENT: Normocephalic. Atraumatic. NECK: Supple. CHEST/LUNGS: breathing nonlabored. HEART/CARDIOVASCULAR: Heart rate stable on telemetry ABDOMEN: Visibly not distended SKIN: There is no rash NEURO: No focal motor deficit. Follows command. MUSCULOSKELETAL: No joint effusion EXTRIMITY: No swelling, no cyanosis or clubbing. PSYCH: Cooperative. - Constitutional Vitals: Vital Signs - 12hr 10/23/20 10/23/20 10/23/20 10:00 16:52 16:58 Temperature 98.4 F Pulse Rate 73 79 Respiratory 18 18 Rate Blood Pressure 137/96 [Left] O2 Sat by Pulse 94 93 Oximetry - Labs CBC & Chem 7: 10/21/20 05:06 10/24/20 05:48 Labs: Abnormal lab results 10/23/20 Range/Units 07:10 BUN 26 H (9-20) mg/dL Glucose 102 H (75-100) mg/dL AST 81 H (5-40) units/L ALT 117 H (7-56) units/L Total Protein 6.1 L (6.3-8.2) g/dL Albumin 3.5 L (3.9-5) g/dL
[2020-10-23] MEDS: FAMOTIDINE 10 MG TAB PO SCH (22:28)
[2020-10-23] MEDS: REMDESIVIR 100 MG in SODIUM CHLORIDE 0.9% 250ML 250 ML IV SCH (22:28)
[2020-10-23] MEDS: SODIUM CHLORIDE 0.9% 50 ML IVPB IV SCH (22:28)
[2020-10-24] MEDS: HEPARIN 5,000 UNIT/1 ML VIAL SUB-Q SCH ×3 (05:48→21:37)
[2020-10-24 06:56] LABS: Alanine Aminotransferase 268 units/L (7-56); Albumin 3.1 g/dL (3.9-5); BUN/Creatinine Ratio 29; Blood Urea Nitrogen 26 mg/dL (9-20); Calcium 8.7 mg/dL (8.4-10.2); Hemolysis Index 3
[2020-10-24] MEDS: FAMOTIDINE 10 MG TAB PO SCH ×2 (10:22→21:34)
[2020-10-24] MEDS: CHOLECALCIFEROL (VIT D3) 5,000 UNIT TAB PO SCH (10:22)
[2020-10-24] MEDS: ASCORBIC ACID 500 MG TAB PO SCH ×2 (10:22→21:34)
[2020-10-24] MEDS: ZINC SULFATE 220 MG CAP PO SCH ×2 (10:23→21:35)
[2020-10-24] MEDS: DEXAMETHASONE 4 MG TAB PO SCH (10:23)
--- NOTE | 2020-10-24 10:44 | Progress Note ---
Assessment and Plan Cultures: None A/P: 55-year-old man no past medical history admitted with COVID-19 #COVID-19 pneumonia: Patient presented with a week of symptoms, chest x-ray with diffuse bilateral infiltrates. Inflammatory markers elevated #Acute hypoxic resp failure: on NC. Secondary to COVID #WARNER: Renally dose medications Recs: -Dexamethasone 6 mg IV/PO daily for 10 days -Remdesivir to compelte 5 days -If he decompensates to require high flow nasal cannula, recommend Actemra once given elevated CRP (if available) -Obtain q48-72h inflammatory markers - ferritin, Ddimer, CRP, LDH -Anticoagulation per hospital protocol -Proning as able 6MWT prior to DC. No need to complete entire course of remdesivir if improved. Thank you for the consult, we will continue to follow. Francis Ribera MD [facility] ([facility]) O: [phone] F: [phone] Subjective Date of service: 10/24/20 Interval history: Afebrile, doing well on 2L Objective - Exam Narrative Exam: Physical exam deferred to reduce risk of transmission of COVID-19. Please refer to primary team's note. - Constitutional Vitals: Vital Signs Temp Pulse Resp BP Pulse Ox 98.6 F 62 18 143/93 95 10/24/20 05:29 10/24/20 05:29 10/24/20 05:29 10/24/20 05:29 10/24/20 08:34 Temperature -Last 24 Hours Temperature 98.6 F Temperature 98.6 F Temperature 98.4 F - Labs CBC & Chem 7: 10/21/20 05:06 10/24/20 05:48 Labs: Abnormal lab results 10/24/20 Range/Units 05:48 Chloride 107.6 H (98-107) mmol/L BUN 26 H (9-20) mg/dL Glucose 101 H (75-100) mg/dL AST 131 H (5-40) units/L ALT 268 H (7-56) units/L Albumin 3.1 L (3.9-5) g/dL
--- NOTE | 2020-10-24 15:29 | Progress Note ---
Assessment and Plan -- Pneumonia due to 2019 novel coronavirus Patient placed on isolation precautions. He has been started on IV antibiotics and steroid. Consult placed to infectious disease for evaluation. --Acute hypoxic respiratory failure O2 sat drops to 84-87% on ambulation Possibly secondary to the underlying pneumonia. We will place place patient on oxygen and keep O2 saturation greater or equal to 94%. -- DVT prophylaxis Patient placed on subcutaneous heparin. --Full code status Daily clinical course: 10/21/20: Patient is not vaccinated against Covid. O2 sat dropped to 87% on ambulation. We will continue dexamethasone and will initiate remdesivir. Continue to follow inflammatory markers. Schedule lab and as needed 10/22/20: Continue dexamethasone and remdesivir. Pending ID consult, follow inflammatory markers, assess for home O2 requirement before discharge. 10/23/20;Continue dexamethasone and remdesivir. follow inflammatory markers, assess for home O2 requirement before discharge. 10/24/20; remains hypoxic on ambulation. O2 sat drops to 84% without O2 on ambulation. Continue dexamethasone and remdesivir. Patient will need home O2 on discharge -order placed. Subjective Date of service: 10/24/20 Interval history: Patient seen and examined. Medical records and medication list reviewed. No acute event overnight noted by the RN. Patient on n/c o2. Patient is tolerating diet. Discussed plan of care at bedside with patient. Remains hypoxic on ambulation Objective - Exam Narrative Exam: Limited physical exam due to COVID-19 pandemic to minimize transmission of the disease and to preserve PPE. Vital reviewed and stable. GENERAL: well-developed well-nourished -[place] male lying on bed appeared to be in no discomfort. HEENT: Normocephalic. Atraumatic. NECK: Supple. CHEST/LUNGS: breathing nonlabored. HEART/CARDIOVASCULAR: Heart rate stable on telemetry ABDOMEN: Visibly not distended SKIN: There is no rash NEURO: No focal motor deficit. Follows command. MUSCULOSKELETAL: No joint effusion EXTRIMITY: No swelling, no cyanosis or clubbing. PSYCH: Cooperative. - Constitutional Vitals: Vital Signs - 12hr 10/24/20 10/24/20 05:29 08:34 Temperature 98.6 F Pulse Rate 62 Respiratory 18 Rate Blood Pressure 143/93 [Left] O2 Sat by Pulse 94 95 Oximetry - Labs CBC & Chem 7: 10/21/20 05:06 08/10/21 05:48 Labs: Abnormal lab results 10/24/20 Range/Units 05:48 Chloride 107.6 H (98-107) mmol/L BUN 26 H (9-20) mg/dL Glucose 101 H (75-100) mg/dL AST 131 H (5-40) units/L ALT 268 H (7-56) units/L Albumin 3.1 L (3.9-5) g/dL
[2020-10-24] MEDS: REMDESIVIR 100 MG in SODIUM CHLORIDE 0.9% 250ML 250 ML IV SCH (21:34)
[2020-10-24] MEDS: SODIUM CHLORIDE 0.9% 50 ML IVPB IV SCH (21:34)
--- NOTE | 2020-10-24 22:36 | Progress Note ---
Assessment and Plan 55-year-old -[place] male seen in the emergency room complaining of fever and chills, decreased appetite and loss of taste and smell over the past 1 week. He states he was diagnosed with COVID-19 the day prior. 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 Upon arrival in the emergency room he had a fever of about 101.2 F and oxygen saturation of 91% on room air. Denies any chest pain, no headache or dizziness, no nausea vomiting, no diarrhea, no abdominal pain, no hematuria or dysuria. Work-up in the emergency room: chest x-ray reveals patchy bilateral pneumonia. Patient admitted with COVID-19 pneumonia with hypoxia. Patient is awake on 3L O2, O2 sat of 94%. He denies chest pain and shortness of breath. He is afebrile, blood pressure 159/103, heart rate 66, RR 18. Leukocytosis present on 10/21/20, no new CBC. COVID Positive. Elevated AST/ALT. D-dimer is 427.77, LDH 426, CRP 8.1, Ferritin 1235. Chest X-ray (10/19/20): Patchy bilateral pneumonia. Atypical/viral pneumonia such as Covid should be considered. Current medications are Dexamethasone, Pepcid, S/Q Heparin, Remdesivir, and Zinc. I spent critical care time of 35 minutes on this patient, reviewing the chart, examine the patient, review the xrays, lab results, talking to the nursing staff and respiratory therapy and work out plan of treatment in this critically Covid 19 patient. - Patient Problems (1) Hypoxia Current Visit: Yes Status: Acute Plan to address problem: 3 litres O2. (2) Coronavirus infection Current Visit: Yes Status: Acute Plan to address problem: Patient is on REMDESIVIR,Dexamethasone, S/C Heparin, Famotidine (3) Pneumonia due to 2019 novel coronavirus Current Visit: Yes Status: Acute Plan to address problem: Antibiotic coverage as per infectious diseases. Subjective Date of service: 10/24/20 Interval history: 55-year-old -[place] male seen in the emergency room complaining of fever and chills, decreased appetite and loss of taste and smell over the past 1 week. He states he was diagnosed with COVID-19 the day prior. 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 Upon arrival in the emergency room he had a fever of about 101.2 F and oxygen saturation of 91% on room air. Denies any chest pain, no headache or dizziness, no nausea vomiting, no diarrhea, no abdominal pain, no hematuria or dysuria. Work-up in the emergency room: chest x-ray reveals patchy bilateral pneumonia. Patient admitted with COVID-19 pneumonia with hypoxia. Patient is awake on 3L O2, O2 sat of 94%. He denies chest pain and shortness of breath. He is afebrile, blood pressure 159/103, heart rate 66, RR 18. Leukocytosis present on 10/21/20, no new CBC. COVID Positive. Elevated AST/ALT. D-dimer is 427.77, LDH 426, CRP 8.1, Ferritin 1235. Chest X-ray (10/19/20): Patchy bilateral pneumonia. Atypical/viral pneumonia such as Covid should be considered. Current medications are Dexamethasone, Pepcid, S/Q Heparin, Remdesivir, and Zinc. Objective Vital Signs - 12hr 10/24/20 10/24/20 16:16 21:38 Temperature 98.8 F Pulse Rate 73 Respiratory 18 Rate Blood Pressure 165/106 [Left] O2 Sat by Pulse 97 94 Oximetry Constitutional: no acute distress, alert Eyes: non-icteric Neck: supple Ascultation: Bilateral: rhonchi Cardiovascular: regular rate and rhythm Gastrointestinal: normoactive bowel sounds, soft, non-tender Integumentary: normal Extremities: no cyanosis, no edema Neurologic: pupils equal and round, other CBC and BMP: 10/21/20 05:06 10/24/20 05:48 ABG, PT/INR, D-dimer: PT/INR, D-dimer PT 12.6 Sec. (12.2-14.9) 10/21/20 05:06 INR 0.89 (0.87-1.13) 10/21/20 05:06 D-Dimer 427.77 ng/mlDDU (0-234) H 10/22/20 14:19 Abnormal lab findings: Abnormal Labs 10/19/20 10/20/20 10/20/20 07:50 00:27 00:27 WBC RBC MCV 83 L MCH 27 L RDW 12.9 L Lymph % (Auto) [place] # (Auto) Seg Neutrophils % 70.3 H Seg Neutrophils # D-Dimer Sodium 134 L Chloride BUN Creatinine 1.5 H Glucose Calcium 8.2 L Ferritin AST 50 H ALT 62 H Lactate Dehydrogenase C-Reactive Protein Total Protein Albumin 3.6 L Coronavirus (PCR) Positive A 10/20/20 10/20/20 10/20/20 00:27 00:27 00:27 WBC RBC MCV MCH RDW Lymph % (Auto) [place] # (Auto) Seg Neutrophils % Seg Neutrophils # D-Dimer 418.21 H Sodium Chloride BUN Creatinine Glucose Calcium Ferritin 893.9 H AST ALT Lactate Dehydrogenase 344 H C-Reactive Protein 9.60 H Total Protein Albumin Coronavirus (PCR) 10/21/20 10/21/20 10/21/20 05:06 05:06 16:29 WBC 14.5 H RBC 5.07 H MCV MCH RDW 13.1 L Lymph % (Auto) 9.4 L [place] # (Auto) 1.0 H Seg Neutrophils % 83.3 H Seg Neutrophils # 12.1 H D-Dimer Sodium 135 L Chloride BUN 21 H 21 H Creatinine Glucose 125 H 136 H Calcium 8.3 L Ferritin AST 47 H ALT Lactate Dehydrogenase C-Reactive Protein Total Protein Albumin 3.4 L Coronavirus (PCR) 10/22/20 10/22/20 10/22/20 06:56 14:19 14:19 WBC RBC MCV MCH RDW Lymph % (Auto) [place] # (Auto) Seg Neutrophils % Seg Neutrophils # D-Dimer 427.77 H Sodium Chloride BUN 22 H Creatinine Glucose Calcium Ferritin 1235.0 H AST 55 H ALT Lactate Dehydrogenase C-Reactive Protein Total Protein Albumin 3.4 L Coronavirus (PCR) 10/22/20 10/23/20 10/24/20 14:19 07:10 05:48 WBC RBC MCV MCH RDW Lymph % (Auto) [place] # (Auto) Seg Neutrophils % Seg Neutrophils # D-Dimer Sodium Chloride 107.6 H BUN 26 H 26 H Creatinine Glucose 102 H 101 H Calcium Ferritin AST 81 H 131 H ALT 117 H 268 H Lactate Dehydrogenase 426 H C-Reactive Protein 8.10 H Total Protein 6.1 L Albumin 3.5 L 3.1 L Coronavirus (PCR)
[2020-10-24 23:10] VITALS: BP 159/103
[2020-10-25] MEDS ORDERED: hydrALAZINE 20 MG/1 ML INJ IV PRN (00:40)
[2020-10-25] MEDS: HEPARIN 5,000 UNIT/1 ML VIAL SUB-Q SCH ×2 (06:11→13:14)
[2020-10-25] MEDS: ZINC SULFATE 220 MG CAP PO SCH (09:05)
[2020-10-25] MEDS: CHOLECALCIFEROL (VIT D3) 5,000 UNIT TAB PO SCH (09:05)
[2020-10-25] MEDS: ASCORBIC ACID 500 MG TAB PO SCH (09:06)
[2020-10-25] MEDS: DEXAMETHASONE 4 MG TAB PO SCH (09:06)
[2020-10-25] MEDS: FAMOTIDINE 10 MG TAB PO SCH (09:06)
[2020-10-25] MEDS ORDERED: DEXAMETHASONE 4 MG TAB PO NR (13:30)
[2020-10-25] MEDS ORDERED: REMDESIVIR 100 MG in SODIUM CHLORIDE 0.9% 250ML 250 ML IV SCH (15:00)
--- NOTE | 2020-10-25 15:05 | Discharge Summary ---
Providers - Providers Date of Admission: 10/20/20 02:37 Date of discharge: 10/25/20 Attending physician: ALYSA REECE 10/20/20 07:08 Consult to Physician [CONS] Routine Comment: Consulting Provider: JOEL ALVARADO Physician Instructions: Reason For Exam: COVID-19 pneumonia 10/20/20 07:14 Consult to Physician [CONS] Routine Comment: Consulting Provider: JOSE BRAGA Physician Instructions: Reason For Exam: COVID-19 pneumonia, hypoxia Primary care physician: KICK BOXER Hospitalization Condition: Stable Pertinent studies: CXR: patchy bilateral PNA Hospital course: 55-year-old man no past medical history admitted with COVID-19. -Patient was tested positive for COVID. -CXR showed patchy parenchymal disease which represent pulmonary edema or atypical pneumonia -Placed on dexamethasone for total 10 days and remdesivir total 5 days -Antibiotic was not required as procalcitonin level was normal - Placed on Droplet/contact isolation, continuous SPO2 monitoring, supplemental oxygen as needed, pulmonary hygiene, prone to sleep, Vitamin C, vitamin D, zinc -Patient was given anticoagulation per protocol, -Infectious disease was consulted. Assessed for Home O2 requirement. -Patient's symptoms improved with current Mx and was assessed for home O2 requirement. - Patient was then discharged home in stable condition with outpt followup. Daily clinical course: 10/21/20: Patient is not vaccinated against Covid. O2 sat dropped to 87% on ambulation. We will continue dexamethasone and will initiate remdesivir. Continue to follow inflammatory markers. Schedule lab and as needed 10/22/20: Continue dexamethasone and remdesivir. Pending ID consult, follow inflammatory markers, assess for home O2 requirement before discharge. 10/23/20; may need home O2 on discharge. Continue dexamethasone and remdesivir. follow inflammatory markers, will assess for home O2 requirement before discharge. 10/24/20; Remains hypoxic on ambulation. O2 sat drops to 84% without O2 on ambulation. Continue dexamethasone and remdesivir. Patient will need home O2 on discharge -order placed. 10/25/20: Last day of remdesivir today, patient need home O2 on discharge. Case management to arrange home O2. Recommended patient to keep self quarantine for up to 2 weeks and follow CDC guidelines. Disposition: 01 HOME / SELF CARE / HOMELESS Final Discharge Diagnosis (Prints w/discharge instructions): --COVID-19 pneum onia. --Acute hypoxic respiratory failure Time spent for discharge: 34 minutes Core Measure Documentation - Palliative Care Palliative Care/ Comfort Measures: Not Applicable - Core Measures Any of the following diagnoses?: none Exam - Physical Exam Narrative exam: Limited physical exam due to COVID-19 pandemic to minimize transmission of the disease and to preserve PPE. Vital reviewed and stable. GENERAL: well-developed well-nourished -[place] male lying on bed appeared to be in no discomfort. HEENT: Normocephalic. Atraumatic. NECK: Supple. CHEST/LUNGS: breathing nonlabored. On nasal cannula O2 HEART/CARDIOVASCULAR: Heart rate stable on telemetry ABDOMEN: Visibly not distended SKIN: There is no rash NEURO: No focal motor deficit. Follows command. MUSCULOSKELETAL: No joint effusion EXTRIMITY: No swelling, no cyanosis or clubbing. PSYCH: Cooperative. - Constitutional Vitals: Temp Pulse Resp BP Pulse Ox 97.9 F 66 18 159/103 95 10/24/20 20:59 10/24/20 20:59 10/24/20 22:00 10/24/20 20:59 10/25/20 12:23 Plan Activity: advance as tolerated Weight Bearing Status: Weight Bear as Tolerated Diet: low fat, low salt Additional Instructions: Upon discharge patient should self-quarantine at home up to 2 weeks from the onset of symptoms. Patients should return to hospital regardless if they have worsening fevers or respiratory status. Follow up with: PRIMARY CARE, [Primary Care Provider] - 3-5 Days VÍCTOR MARCANO MD [Staff Physician] - 7 Days Prescriptions: dexAMETHasone [Decadron] 6 mg PO Q24HR #7 tablet Famotidine [Pepcid] 10 mg PO BID #14 tablet Albuterol Mdi (or & Nicu Only) [ProAir HFA Inhaler] 2 puff IH QID PRN #8.5 gram PRN Reason: Shortness Of Breath Ascorbic Acid [Vitamin C] 1,000 mg PO BID #14 tablet Cholecalciferol (Vitamin D3) [Vitamin D3] 5,000 unit PO DAILY #7 tablet Zinc Sulfate 220 mg PO BID #14 capsule
[2020-10-25] MEDS ORDERED: SODIUM CHLORIDE 0.9% 50 ML IVPB IV SCH (15:30)
--- NOTE | 2020-10-25 17:19 | Progress Note ---
Assessment and Plan Cultures: None A/P: 55-year-old man no past medical history admitted with COVID-19 #COVID-19 pneumonia: Patient presented with a week of symptoms, chest x-ray with diffuse bilateral infiltrates. Inflammatory markers elevated #Acute hypoxic resp failure: on NC. Secondary to COVID #WARNER: Renally dose medications Recs: -Dexamethasone 6 mg IV/PO daily for 10 days -Remdesivir to compelte 5 days -If he decompensates to require high flow nasal cannula, recommend Actemra once given elevated CRP (if available) -Obtain q48-72h inflammatory markers - ferritin, Ddimer, CRP, LDH -Anticoagulation per hospital protocol -Proning as able 6MWT prior to DC. No need to complete entire course of remdesivir if improved. Thank you for the consult, we will continue to follow. Francis Ribera MD [facility] ([facility]) O: [phone] F: [phone] Subjective Date of service: 10/25/20 Interval history: Afebrile, normal white count. On 2 L nasal cannula. Objective - Exam Narrative Exam: Physical exam deferred to reduce risk of transmission of COVID-19. Please refer to primary team's note. - Constitutional Vitals: Vital Signs Temp Pulse Resp BP Pulse Ox 97.9 F 66 18 159/103 95 10/24/20 20:59 10/24/20 20:59 10/24/20 22:00 10/24/20 20:59 10/25/20 12:23 Temperature -Last 24 Hours Temperature 97.9 F - Labs CBC & Chem 7: 10/21/20 05:06 10/24/20 05:48 Labs: Abnormal lab results 10/25/20 10/25/20 Range/Units 14:54 14:54 D-Dimer 426.18 H (0-234) ng/mlDDU Ferritin 1950.0 H (30.0-300.0) ng/mL
== END 2020-10-25 18:10 | disposition home or self-care (01) | DRG 177 ==
LOC: ED 19:53 → 3A 10-20 02:37
PROVIDERS: ADMIT Internal Medicine Geriatric Medicine; ATTEND Internal Medicine
PROC: XW033E5 Introduction of Remdesivir Anti-infective into Peripheral Vein, Percutaneous Approach, New Technology Group 5 (ICD-10-PCS; principal; 2020-10-21)
DX: U07.1 COVID-19 (principal); J12.82 Pneumonia due to coronavirus disease 2019; J96.01 Acute respiratory failure with hypoxia; N17.9 Acute kidney failure, unspecified
CPT/HCPCS: 36415; 71046; 80048; 80053; 82140; 82728; 82947; 83615; 84145; 85025; 85379; 85610; 86140; 93005; 94760; G0378; J0456; J0696; J1100; J1644; J7030; J7050; J8540; U0003